=== PATIENT | female | born 1945 | race Caucasian/White ===

== ENCOUNTER 2017-10-17 10:45 | Inpatient (IN) | payer MEDICARE, OTHER ==
[~2017-10-17] VITALS: Ht 157.5 cm; Wt 91.2 kg
[~2017-10-17 10:45] MED LIST: ACETAMINOPHEN650 M5 PO; CIPROFLOXACIN250 M2 OR; COUMADIN; COUMADIN 2 MG TA2 M1 PO; COUMADIN 4 MG TA4 M1 PO; GLUCOPHAGE500 MG PO; HYDROCODON-ACE1 EAC7 PO; KEFLEX250 MG PO; MYRBETRIQ50 MG PO; NORVASC 5 MG TAB5 MG PO; PROCTOFOAM-HC 110 GM RECTAL; PROCTOFOAM15 GM RECTAL; RANEXA500 MG PO; TOPROL XL50 MG PO; WELLBUTRIN SR150 MG PO; ZOCOR 20 MG TAB20 M1 PO
[2017-10-17 11:07] VITALS: BP 94/58
[2017-10-17] MEDS ORDERED: JANTOVEN2 MG PO (11:11)
[2017-10-17 11:36] LABS: ABSOLUTE BASOPHILS 0.2 thou/uL (0.0-0.2); ABSOLUTE EOSINOPHILS 0.1 thou/uL (0.0-0.7); ABSOLUTE LYMPHOCYTES 1.7 thou/uL (0.8-5.3); ABSOLUTE MONOCYTES 0.4 thou/uL (0.0-1.2); ABSOLUTE NEUTROPHILS 4.7 thou/uL (1.6-8.1); BASOPHILS 2.2 %; EOSINOPHILS 1.7 %; HEMATOCRIT 24.9 % (37.0-47.0); LYMPHOCYTES 23.5 %; MCHC 27.1 g/dL (28.0-37.0); MCV 51.4 fL (80.0-100.0); MONOCYTES 5.6 %; MPV 9.2 fl. (7.2-11.1); NUCLEATED RBCS 1 /100WBC; RBC 4.84 mil/uL (4.20-5.00); RDW-CV 21.4 % (10.5-14.5); WBC 7.1 thou/uL (4.0-11.0)
[2017-10-17 11:42] LABS: HEMOGLOBIN 6.7 gm/dL (12.0-15.0)
[2017-10-17 11:46] LABS: ANION GAP 10 mmol/L (7-16); APTT 36.6 Seconds (25.0-31.3); BUN 17 mg/dL (7-18); CHLORIDE 104 mmol/L (98-107); CO2 24 mmol/L (21-32); CREATININE 1.4 mg/dL (0.6-1.3); GLUCOSE 128 mg/dL (70-99); INR 2.8; POTASSIUM 4.7 mmol/L (3.5-5.1); SODIUM 138 mmol/L (136-145)
[2017-10-17 11:59] LABS: PLATELET ESTIMATE DECREASED
[2017-10-17 12:00] LABS: ANISOCYTOSIS 2+; HYPOCHROMASIA 3+; MICROCYTES 2+; OVALOCYTES 2+; PLATELET COUNT* 127 thou/uL (150-400); POIKILOCYTOSIS 1+; TARGET CELLS Occasional
[2017-10-17 12:03] LABS: ALBUMIN 3.1 g/dL (3.4-5.0); ALKALINE PHOSPHATASE 80 U/L (46-116); LIPASE 199 U/L (73-393); SGOT 20 U/L (15-37); SGPT 18 U/L (30-65); TOTAL BILIRUBIN 0.8 mg/dL (<0.1-1.0); TOTAL PROTEIN 7.1 g/dL (6.4-8.2); TROPONIN-I LEVEL <0.06 ng/mL (<0.06)
--- NOTE | 2017-10-17 13:14 | NUR ---
PT GIVEN LUNCH TRAY PER ORDERS
[2017-10-17 13:15] LABS: URINE BILIRUBIN NEGATIVE (Negative); URINE BLOOD 3+ (Negative); URINE COLOR YELLOW; URINE GLUCOSE-RANDOM NEGATIVE (Negative); URINE KETONES NEGATIVE (Negative); URINE LEUKOCYTES-REFLEX 1+ (Negative); URINE NITRITE-REFLEX NEGATIVE (Negative); URINE PROTEIN TRACE (Negative); URINE UROBILINOGEN 0.2 E.U./dl (0.2-1.0)
[2017-10-17 13:16] LABS: URINE CLARITY SL CLOUDY
[2017-10-17 13:20] LABS: CASTS None Seen /LPF (None Seen); CRYSTALS None Seen /LPF (None Seen); SQUAMOUS 4-10 Moderate /LPF (0-3); URINE RBC >20 Many /HPF (0-2)
[2017-10-17 13:21] LABS: BACTERIA-REFLEX None Seen /HPF (None Seen); URINE WBC-REFLEX 0-5 Rare /HPF (0-5)
[2017-10-17 13:35] LABS: HEMATOCRIT 21.8 % (37.0-47.0)
[2017-10-17 13:36] LABS: HEMOGLOBIN 5.9 gm/dL (12.0-15.0)
--- NOTE | 2017-10-17 14:26 | NUR ---
SEE BLOOD TRANSFUSION PAPERWORK FOR UPDATED VITAL SIGNS
--- NOTE | 2017-10-17 16:24 | EKG ---
[place] [address] ELECTROCARDIOGRAM REPORT Name: VITO AYOUB Room: [place] [address] ADM IN [facility].#: [id number] Admission: 10/17/17 Attend Phys: Juan Daniel Casas MD Discharge: Date of : 47 Report #: [id number] THIS REPORT FOR: //name// [facility] ED Test Date: 2017-10-17 Test Time: 11:18:41 Pat Name: VITO AYOUB Department: Room: [facility] Gender: F Health Sciences Program Coordinator: Stanley WILKS : 1945 Requested By: Basia Edwards Order Number: [id number] MD: Franco Felder Measurements Intervals [place] Rate: 129 P: [place]: QRS: 19 QRSD: 94 T: 57 QT: 330 QTc: 484 Interpretive Statements Atrial fibrillation Probable LVH with secondary repol abnrm Compared to ECG 08/09/2017 15:58:02 Sinus rhythm no longer present Electronically Signed On 10-17-2017 16:24:07 SINTER PRESS OPERATOR by Franco Felder [email or web address] <ELECTRONICALLY SIGNED> By: Franco Felder MD, FAC 10/17/17 1624 1118 1118 Franco Felder MD, [facility] /EPI
[2017-10-17 16:33] VITALS: BP 119/84
--- NOTE | 2017-10-17 18:29 | NUR ---
PT WAS GIVEN CLEAR LIQUID TRAY FOR DINNER.
[2017-10-17 20:32] LABS: HEMATOCRIT 27.2 % (37.0-47.0)
[2017-10-17 20:34] LABS: HEMOGLOBIN 8.1 gm/dL (12.0-15.0)
[2017-10-17 20:38] VITALS: BP 122/60
[2017-10-17 21:00] VITALS: BP 134/59
[2017-10-18] VITALS: BP 92/51
[2017-10-18 04:00] VITALS: BP 109/54
[2017-10-18 05:53] LABS: HEMOGLOBIN 7.1 gm/dL (12.0-15.0); NUCLEATED RBCS 1 /100WBC; WBC 6.5 thou/uL (4.0-11.0)
[2017-10-18 05:55] LABS: HEMATOCRIT 24.5 % (37.0-47.0); MCH 16.8 pg (26.0-34.0); MCHC 29.2 g/dL (28.0-37.0); MPV 9.4 fl. (7.2-11.1); PLATELET COUNT* 99 thou/uL (150-400); RBC 4.25 mil/uL (4.20-5.00); RDW-CV 33.3 % (10.5-14.5)
[2017-10-18 06:04] LABS: MCV 57.6 fL (80.0-100.0)
[2017-10-18 06:07] LABS: CALCIUM 7.8 mg/dL (8.5-10.1); CREATININE 1.1 mg/dL (0.6-1.3); POTASSIUM 4.1 mmol/L (3.5-5.1)
[2017-10-18 06:23] LABS: ABSOLUTE BASOPHILS 0.1 thou/uL (0.0-0.2); ABSOLUTE EOSINOPHILS 0.2 thou/uL (0.0-0.7); ABSOLUTE LYMPHOCYTES 1.3 thou/uL (0.8-5.3); ABSOLUTE MONOCYTES 0.3 thou/uL (0.0-1.2); ABSOLUTE NEUTROPHILS 4.7 thou/uL (1.6-8.1); HYPOCHROMASIA 2+; MICROCYTES 2+; PLATELET ESTIMATE DECREASED
[2017-10-18 06:24] LABS: ANISOCYTOSIS 2+; OVALOCYTES 1+; POIKILOCYTOSIS 2+; POLYCHROMASIA 1+; TARGET CELLS 1+
--- NOTE | 2017-10-18 07:43 | NUR ---
PT TO FLOOR AT 2100, ASSUMED CARE. PT WAS AFIB RVR PROVIDER CONTACTED CARTIZEM DRIP ORDERED. PT RATE LOWERED BELOW 110. FLUIDS RUNING. RA. ADLIB. BM WITH BLOOD IN STOOL. VITALS WNL. HOURLY ROUNDING FOR SAFETY.
[2017-10-18 08:00] VITALS: BP 113/60
--- NOTE | 2017-10-18 11:02 | NUR ---
ASSUMED CARE OF PT AT 0730. PT RESTING IN BED. PT A&0X4. NPO FOR CARDIOLOGY CONSULT. GI CONSULT IN PLACE ALSO. PT DENIES ANY PAIN OR SHORTNESS OF BREATH AT THIS TIME. PT TRACING AFIB ON THE FELT CEMENTER. RATE IN THE 100'S-110'S. CARDIZEM GTT CURRENTLY INFUSING AT 5 ML/HR. BLOOD PRESSURE SOFT THROUGHOUT NIGHT ON CARDIZEM GTT. WILL MONITOR CLOSELY. PT ON RA SAT 97%. PT UP WITH 1 ASSIST TO BATHROOM. PT HAVING BLOODY STOOLS. IVF. PT GOAL FOR TODAY IS TO MONITOR HGB, CARDIOLOGY AND GI CONSULT AND MONITOR HEART RATE AND RHYTHM PT ON CARDIZEM GTT. AM ASSESSMENT CHARTED. MEDICATIONS PER DEC. PT REPOSITIONS SELF IN BED WITH REMINDERS. HOURLY ROUNDING OBSERVED. BED IN LOW POSITION. CALL LIGHT WITHIN REACH. WILL CONTINUE PLAN OF CARE.
[2017-10-18 11:58] VITALS: BP 114/66
[2017-10-18 11:59] LABS: HEMATOCRIT 26.1 % (37.0-47.0); HEMOGLOBIN 7.4 gm/dL (12.0-15.0)
[2017-10-18 12:09] LABS: INR 1.6; PROTIME 15.2 Seconds (9.20-11.50)
--- NOTE | 2017-10-18 15:50 | NUR ---
Pt was on the phone and asked that CM come back later, will f/u tomorrow
[2017-10-18 16:10] VITALS: BP 107/68
--- NOTE | 2017-10-18 17:03 | 2DMMODE ---
[place] [address] 2 D/M-MODE ECHOCARDIOGRAM Name: VITO AYOUB [facility] IN [facility]#: [id number] Admission: 10/17/17 Attend Phys: Juan Daniel Casas, Discharge: Date of : 47 Date of Service: 10/18/17 1703 Report #: [id number] THIS REPORT FOR: //name// APPROVED REPORT Study performed: 10/18/2017 15:00:13 EXAM: Comprehensive 2D, Doppler, and color-flow Echocardiogram Patient Location: In-Patient Room #: 208 Status: routine BSA: 1.87 HR: 93 bpm BP: 114/66 mmHg Rhythm: Atrial Fibrillation Other Information Study Quality: Good Indications Atrial Fibrillation Rectal bleeding 2D Dimensions LVEF(%): 52.91 (>50%) IVSd: 10.58 (7-11mm) LVOT Diam: 19.74 (18-24mm) LVDd: 46.13 mm PWd: 11.04 (7-11mm) Ascending Ao: 27.00 (22-36mm) LVDs: 33.61 (25-40mm) Aortic Root: 29.76 mm Zazueta's LVEF: 52.91 % Volumes Left Atrial Volume (Systole) LA ESV Index: 44.40 mL/m2 Aortic Valve AoV Peak Phil.: 1.98 m/s AO Peak Gr.: 15.76 mmHg LVOT Max P.31 mmHg AO Mean Gr.: 9.28 mmHg LVOT Mean P.88 mmHg LVOT Max V: 1.15 m/s AO V2 VTI: 32.51 cm LVOT Mean V: 0.79 m/s AMY (VTI): 1.88 cm2 LVOT V1 VTI: 19.95 cm AI [place]: 2.64 m/s2 AI PHT: 469.11 [place] [address] 2 D/M-MODE ECHOCARDIOGRAM Name: VITO AYOUB Room: [address] IN .R.#: [id number] Admission: 10/17/17 Attend Phys: Juan Daniel Casas, Discharge: Date of : 47 Date of Service: 10/18/17 1703 Report #: [id number] Mitral Valve MV Decel. Time: 174.30 ms MV PHT: 50.55 ms MVA (PHT): 4.35 cm2 TDI Medial E' Phil.: 0.12 m/s Lateral E' Phil.: 0.15 m/s Pulmonary Valve PV Peak Phil.: 1.18 m/s PV Peak Gr.: 5.54 mmHg Tricuspid Valve TR Peak Gr.: 30.52 mmHg RVSP: 35.00 mmHg Left Ventricle The left ventricle is normal size. There is normal LV segmental wall motion. There is normal left ventricular wall thickness. Left ventricular systolic function is normal. LVEF is 55-60%. This study is not technically sufficient to allow evaluation of the LV diastolic function due to atrial fibrillation. Right Ventricle The right ventricle is normal size. The right ventricular systolic function is normal. Atria Left atrium is moderately dilated. The right atrium size is normal. Aortic Valve Mild aortic valve sclerosis. Moderate aortic regurgitation. Mild aortic stenosis. Mitral Valve The mitral valve is normal in structure. Mild mitral regurgitation. No evidence of mitral valve stenosis. Tricuspid Valve The tricuspid valve is normal in structure. Mild tricuspid regurgitation. The RVSP is 35-40 mmHg. Pulmonic Valve The pulmonary valve is normal in structure. There is no pulmonic [place] [address] 2 D/M-MODE ECHOCARDIOGRAM Name: VITO AYOUB Room: [address] IN [facility]#: [id number] Admission: 10/17/17 Attend Phys: Juan Daniel Casas, Discharge: Date of : 47 Date of Service: 10/18/17 1703 Report #: [id number] Great Vessels The aortic root is normal in size. IVC is normal in size and collapses with >50% inspiration Pericardium There is no pericardial effusion. <Conclusion> The left ventricle is normal size. There is normal left ventricular wall thickness. Left ventricular systolic function is normal. LVEF is 55-60%. This study is not technically sufficient to allow evaluation of the LV diastolic function due to atrial fibrillation. Left atrium is moderately dilated. Mild aortic valve sclerosis. Mild aortic stenosis. Moderate aortic regurgitation. Mild mitral regurgitation. Mild tricuspid regurgitation. The RVSP is 35-40 mmHg. <ELECTRONICALLY SIGNED> By: Khanh Camarena MD, FACC 10/18/171702 02 02 Khanh Camarena MD, FACC /INF
--- NOTE | 2017-10-18 17:55 | NUR ---
NO ACUTE CHANGES THROUGHOUT SHIFT. REFER TO CHARTING. CARDIOLOGY HERE TO SEE PT. ORDERS RECEIVED FOR AMIODARONE LOAD PO, START CARDIZEM PO AND ECHO. ECHO RESULTS BACK AT 55-60%. CARDIZEM PO STARTED AT APPROXIMATELY 1415 AND IV CARDIZEM GTT STOPPED AT APPROXIMATELY 1530. PT CONTINUES TO TRACE AFIB RATE IN THE 90'S-110'S. BLOOD PRESSURE STABLE. GO HERE TO SEE PT. GI AGREES WITH GENERAL SURGERY PLAN AND SIGNED OFF. GENERAL SURGERY AWAITING CARDIOLOGY INPUT ON HOW LONG PT SHOULD BE OFF OF COUMADIN. ON RA SAT UPPER 90'S. DENIES ANY PAIN OR SHORTNESS OF BREATH. PT UP WITH 1 ASSIST TO BATHROOM. PT HAD COUPLE OF BLOODY STOOLS TODAY. HGB TRENDED UP THROUGHOUT DAY. IVF. MEDICATIONS PER DEC. PT REPOSITIONS SELF IN BED WITH REMINDERS. HOURLY ROUNDING OBSERVED. BED IN LOW POSITION. BED ALARM IN PLACE. FALL PRECAUTIONS IN PLACE. CALL LIGHT WITHIN REACH. WILL CONTINUE PLAN OF CARE.
[2017-10-18 20:10] VITALS: BP 106/65
--- NOTE | 2017-10-18 20:21 | CON ---
[address] [address] CONSULTATION Name: VITO AYOUB Room: [address] IN ..#: [id number] Admission: 10/17/17 Attend Phys: Juan Daniel Casas MD Discharge: Date of : 47 Report #: [id number] THIS REPORT FOR: //name// CC: Juan Daniel Redd MD DICTATED BY: Jennifer Smith [facility] DATE OF SERVICE: 10/17/2017 Please note at the time of this dictation, the patient was seen and physically examined by myself. REASON FOR CONSULTATION: Rectal bleeding. HISTORY OF PRESENT ILLNESS: This is a pleasant 71-year-old female who arrived to the emergency room after she states that she has been having increasing bright red blood per rectum with some dark and clots more so here over the last couple of days. In further investigating with the patient, she states she has been noticing blood ever since before [place], but it was off and on and now it has become more consistent and she had not let anybody know in regards to this. The patient states she has not been constipated and has not been straining to go to the bathroom. However, she has noted very minimal lower abdominal cramping at this time. She was seen on 08/08/2017, for similar reason and she underwent a by Dr. Hughes and was noted to have some mild gastritis. She had a duodenal biopsy that showed duodenitis. Colonoscopy showed severe diverticulosis of the sigmoid colon. She had 2 polyps that were removed in the ascending that were tubular adenoma. She also had 2 more polyps in the distal ascending that were not removed and it was recommended that she return in 6 months to have those done. It was also noted that she had a very large internal and external hemorrhoids that they felt were likely the source of her bleeding and she was given Proctofoam, which she states that she ran out this past week and had not gotten a new prescription, but she states she was still having bleeding while she was on the Proctofoam. She thinks it may have worsened since she ran out of the medicine she is not for sure. The patient also noticed over the last day or two prior to her calling to her PCP that she was having increased shortness of breath and she was having a little bit of chest pain as well as feeling very fatigued. ALLERGIES: MACROBID, ERYTHROMYCIN, and IMDUR. MEDICATIONS FROM HOME: Ranexa, Wellbutrin, Toprol, Glucophage, Norvasc, mirabegron and warfarin 3 mg daily, which she did not take today. PAST MEDICAL HISTORY: GI bleed, rectal bleeding from August 08, history of [facility] [address] [place] [address] CONSULTATION Name: VITO AYOUB Room: [address] IN [facility].#: [id number] Admission: 10/17/17 Attend Phys: Juan Daniel Casas MD Discharge: Date of : 47 Report #: [id number] diabetes, hypertension, congestive heart failure, atrial fib, history of a stroke. She has been told she has had "thick blood." PAST SURGICAL HISTORY: She has had a CABG, appendectomy, cholecystectomy, tubal ligation, tonsillectomy and some hand surgery done in the past. FAMILY HISTORY: Noncontributory. SOCIAL HISTORY: Alcohol on special occasions. Denies any tobacco or illegal drug use at this time. REVIEW OF SYSTEMS: Twelve-point review of systems is essentially negative except what is mentioned in the HPI. PHYSICAL EXAMINATION: VITAL SIGNS: Temperature 36.9, pulse 108, respirations 16, and blood pressure 107/47. HEART: Regular rate and rhythm, somewhat tachycardic. LUNGS: Clear, but slightly diminished. ABDOMEN: Soft, positive bowel sounds in all 4 quadrants with a little tenderness noted in the very lower abdominal region. CT of the abdomen and pelvis showed some slight liver nodularity, renal stone and some colonic diverticulosis. LABS: Hemoglobin on admission was 6.7, she dropped down to 5.9 and she is getting transfused a unit. White count is 7.1, hematocrit 21.8, platelets is 127. PT is 27, INR is 2.8. Sodium 138, potassium 4.7, chloride 104, CO2 of 24, BUN is 17, creatinine 1.4, GFR is 37, and glucose is 128. IMPRESSION: 1. Acute anemia. 2. Rectal bleeding. 3. Anticoagulant therapy secondary to atrial fibrillation, warfarin and previous cerebrovascular accident. 4. Thrombocytopenia. PLAN: 1. Transfuse as needed to keep her hemoglobin greater than 7. 2. Hold her warfarin. 3. We discussed with the patient that may need to have something done with her hemorrhoids in the future, but for now, we will attempt to control her bleeding and get [place] [address] CONSULTATION Name: VITO AYOUB Room: 208-P ADM IN M.R.#: [id number] Admission: 10/17/17 Attend Phys: Juan Daniel Casas MD Discharge: Date of : 47 Report #: [id number] Thank you for allowing us to participate in this patient's care. Please do not hesitate to call with any questions in regard to this consult. <ELECTRONICALLY SIGNED> By: Vicente Vázquez DO 10/18/172020 1734 2232Vicente Vázquez DO /nt
[2017-10-19] VITALS (7 sets, daily range): BP systolic 102–132; BP diastolic 47–71
--- NOTE | 2017-10-19 03:41 | NUR ---
ASSUMED CARE OF PT AT 1900. PT IS ALERT AND ORINETED. VSS. PERRLA. NO COMPLAINTS OF PAIN. UP WITH STAND BY ASSIST. PT IS IN A FIB ON THE TELEMETRY. PT IS RESTING COMFORTABLY IN BED. RESPIRATIONS ARE EVEN AND NONLABORED. WILL CONTINUE TO MONITOR PT.
--- NOTE | 2017-10-19 09:30 | NUR ---
ASSUMED CARE OF PT AT 0730. PT RESTING AT EDGE OF BED WAITING FOR BREAKFAST. PT A&0X4, DENIES ANY PAIN OR SHORTNESS OF BREATH AT THIS TIME. PT TRACING AFIB ON THE SHIPPING SPECIALIST. RATE IN THE LOW 100'S. AMIO LOAD IN PLACE. PT ON RA SAT UPPER 90'S. PT UP WITH 1 ASSIST TO BATHROOM. PT STATES THE BLOODY STOOLS HAVE GOTTEN BETTER. GENERAL SURGERY AWAITING CARDIOLOGY CLEARANCE FOR SURGERY REGARDING TIME OFF COUMADIN. AM ASSESSMENT CHARTED. MEDICATIONS PER DEC. PT REPOSITIONS SELF IN BED WITH REMINDERS. HOURLY ROUNDING OBSERVED. BED IN LOW POSITION. CALL LIGHT WITHIN REACH. WILL CONTINUE PLAN OF CARE.
[2017-10-19 10:10] LABS: ABSOLUTE BASOPHILS 0.2 thou/uL (0.0-0.2); ABSOLUTE EOSINOPHILS 0.1 thou/uL (0.0-0.7); ABSOLUTE LYMPHOCYTES 1.3 thou/uL (0.8-5.3); ABSOLUTE MONOCYTES 0.4 thou/uL (0.0-1.2); ABSOLUTE NEUTROPHILS 4.2 thou/uL (1.6-8.1); BASOPHILS 2.6 %; EOSINOPHILS 1.6 %; HEMATOCRIT 24.8 % (37.0-47.0); LYMPHOCYTES 20.9 %; MCH 16.4 pg (26.0-34.0); MCHC 28.3 g/dL (28.0-37.0); MPV 8.9 fl. (7.2-11.1); NUCLEATED RBCS 0 /100WBC; POLYS 67.9 %; RBC 4.27 mil/uL (4.20-5.00); RDW-CV 33.6 % (10.5-14.5); WBC 6.2 thou/uL (4.0-11.0)
[2017-10-19 10:41] LABS: MICROCYTES 2+; OVALOCYTES 2+
[2017-10-19 10:42] LABS: HYPOCHROMASIA 2+; POLYCHROMASIA 2+; TARGET CELLS 1+
[2017-10-19 10:43] LABS: PLATELET COUNT* 83 thou/uL (150-400); PLATELET ESTIMATE DECREASED
[2017-10-19 10:45] LABS: ALBUMIN 2.6 g/dL (3.4-5.0); CALCIUM 8.3 mg/dL (8.5-10.1); CREATININE 1.2 mg/dL (0.6-1.3); TOTAL BILIRUBIN 1.1 mg/dL (<0.1-1.0); TOTAL PROTEIN 5.9 g/dL (6.4-8.2)
--- NOTE | 2017-10-19 12:51 | EKG ---
[place] [address] ELECTROCARDIOGRAM REPORT Name: VITO AYOUB Room: [address] ADM IN .R.#: [id number] Admission: 10/17/17 Attend Phys: Juan Daniel Casas MD Discharge: Date of : 47 Report #: [id number] THIS REPORT FOR: //name// [facility] Test Date: 2017-10-19 Test Time: 09:33:55 Pat Name: VITO AYOUB Department: Room: [address] Gender: F Construction Driver: : 1945 Requested By: Deisi Case Order Number: [id number] Reading MD: Franco Felder Measurements Intervals [place] Rate: 93 P: [place]: QRS: 39 QRSD: 98 T: 77 QT: 365 QTc: 454 Interpretive Statements Atrial fibrillation Minimal ST depression, lateral leads Compared to ECG 10/17/2017 11:18:41 rate slowed Electronically Signed On 10-19-2017 12:51:33 HVAC/R INSTRUCTOR by Franco Felder [email or web address] <ELECTRONICALLY SIGNED> By: Franco Felder MD, [facility] 10/19/17 1251 2 2 Franco Felder MD, [facility] /EPI
--- NOTE | 2017-10-19 14:46 | NUR ---
CM ASSESSMENT: Pt is A&O. Resides at home with her . Independent with ADLs. Pt has a walker and cane at home that she can use if necessary. No hx of HH or SNF. Goal is to return home once medically stable. Following.
--- NOTE | 2017-10-19 18:27 | NUR ---
NO ACUTE CHANGES THROUGHOUT SHIFT. REFER TO CHARTING. PT HAD SHOWER TODAY. IVF DISCONTINUED. PLAN IS FOR PT AND GENERAL SURGERY TO AGREE ON WHAT HEMORRHOIDAL SURGERY WILL OCCUR. PT CONTINUES TO TRACE AFIB ON THE MULTI SLIDE MACHINE TENDER. RATE CONTROLLED. ON RA SAT UPPER 90'S. DENIES ANY SHORTNESS OF BREATH OR PAIN. FAMILY AT BEDSIDE THROUGHOUT SHIFT. PT DENIES ANY BLOODY STOOLS TODAY. UP WITH 1 ASSIST TO BATHROOM. MEDICATIONS PER MAR. PT REPOSITIONS SELF IN BED WITH REMINDERS. HOURLY ROUNDING OBSERVED. BED IN LOW POSITION. CALL LIGHT WITHIN REACH. WILL CONTINUE PLAN OF CARE.
--- NOTE | 2017-10-19 23:50 | NUR ---
ASSUMED CARE OF PT AT 1900. PT IS ALERT AND ORIENTED. VSS. PERRLA. NO COMPLAINTS OF PAIN. UP AD JOS. PT IS IN A FIB ON THE TELEMETRY. PT IS RESTING COMFORTABLY IN BED. RESPIRATIONS ARE EVEN AND NONLABORED. WILL CONTINUE TO MONITOR PT.
[2017-10-20] VITALS: BP 92/48
[2017-10-20 04:12] VITALS: BP 93/50
[2017-10-20 06:02] LABS: PREALBUMIN 16.5 mg/dL (18.0-35.7)
[2017-10-20 06:17] LABS: CALCIUM 8.9 mg/dL (8.5-10.1); CREATININE 1.4 mg/dL (0.6-1.3); POTASSIUM 4.1 mmol/L (3.5-5.1)
[2017-10-20 06:43] LABS: ABSOLUTE BASOPHILS 0.1 thou/uL (0.0-0.2); ABSOLUTE EOSINOPHILS 0.2 thou/uL (0.0-0.7); ABSOLUTE LYMPHOCYTES 1.4 thou/uL (0.8-5.3); ABSOLUTE MONOCYTES 0.6 thou/uL (0.0-1.2); ABSOLUTE NEUTROPHILS 6.2 thou/uL (1.6-8.1); BASOPHILS 0.9 %; EOSINOPHILS 2.3 %; HEMATOCRIT 24.4 % (37.0-47.0); HEMOGLOBIN 7.2 gm/dL (12.0-15.0); MCH 16.9 pg (26.0-34.0); MCHC 29.3 g/dL (28.0-37.0); MCV 57.4 fL (80.0-100.0); MONOCYTES 6.6 %; MPV 9.7 fl. (7.2-11.1); NUCLEATED RBCS 1 /100WBC; PLATELET COUNT* 82 thou/uL (150-400); POLYS 73.2 %; RBC 4.25 mil/uL (4.20-5.00); WBC 8.4 thou/uL (4.0-11.0)
[2017-10-20 07:05] LABS: HYPOCHROMASIA 3+; MICROCYTES 2+; OVALOCYTES 2+; PLATELET ESTIMATE DECREASED; TARGET CELLS 1+
[2017-10-20 07:06] LABS: ANISOCYTOSIS 2+; POIKILOCYTOSIS 2+
[2017-10-20 08:30] VITALS: BP 109/55
[2017-10-20 12:33] VITALS: BP 115/47
--- NOTE | 2017-10-20 13:47 | EKG ---
[place] [address] ELECTROCARDIOGRAM REPORT Name: VITO AYOUB Room: [address] ADM IN M.R.#: [id number] Admission: 10/17/17 Attend Phys: Juan Daniel Casas MD Discharge: Date of : 47 Report #: [id number] THIS REPORT FOR: //name// [facility] Test Date: 2017-10-20 Test Time: 09:28:37 Pat Name: VITO AYOUB Department: Room: [address] Gender: F Swimming Pool Servicer: TAMI : 1945 Requested By: Deisi Case Order Number: [id number] Reading MD: Ovidio Lorenz Measurements Intervals [place] Rate: 83 P: 21 CT: 152 QRS: 33 QRSD: 106 T: 71 QT: 427 QTc: 502 Interpretive Statements Sinus rhythm Minimal ST depression, lateral leads Prolonged QT interval Compared to ECG 10/19/2017 09:33:55 Prolonged QT interval now present Atrial fibrillation no longer present ST (T wave) deviation still present Electronically Signed On 10-20-2017 13:47:03 WATER PROJECT MANAGER by Ovidio Lorenz [email or web address] <ELECTRONICALLY SIGNED> By: Mallorie Lorenz MD, [facility] 10/20/17 1347 0928 Mallorie Lorenz MD, [facility] /EPI
[2017-10-20 16:00] VITALS: BP 86/35
--- NOTE | 2017-10-20 19:25 | NUR ---
PT ASSESSMENT CHARTED. PT CONTINUES TO HAVE INCREASING SOA AND IS VERY ORTHOPNEIC. CHEST XRAY RECEIVED AND ANTIBIOTICS STARTED. STAT CBC ORDERS RECEIVED TO CHECK FOR DROP IN HGB. NO COMPLAINTS OF PAIN. PT'S VITAL SIGNS HAVE BEEN STABLE.
[2017-10-20 19:33] LABS: HEMATOCRIT 25.4 % (37.0-47.0); HEMOGLOBIN 7.3 gm/dL (12.0-15.0); MCH 16.7 pg (26.0-34.0); MCHC 28.8 g/dL (28.0-37.0); MCV 57.7 fL (80.0-100.0); MPV 8.9 fl. (7.2-11.1); RBC 4.4 mil/uL (4.20-5.00); RDW-CV 34.4 % (10.5-14.5); WBC 8.9 thou/uL (4.0-11.0)
[2017-10-20 19:40] VITALS: BP 117/61
[2017-10-21] VITALS: BP 113/59
--- NOTE | 2017-10-21 03:29 | NUR ---
ASSUMED CARE OF PT AT 1900. PT IS ALERT AND ORIENTED. VSS. PERRLA. NO COMPLAINTS OF PAIN. PT REPORTS SOME SOA. SPO2 96%. PT IS IN SINUS RYTHM ON THE TELEMETRY. PT IS RESTING COMFORTABLY IN BED. RESPIRATIONS ARE EVEN AND NONLABORED. WILL CONTINUE TO MONITOR PT.
[2017-10-21 04:00] VITALS: BP 121/71
[2017-10-21 06:03] LABS: INR 1.2; PROTIME 11.3 Seconds (9.20-11.50)
[2017-10-21 06:05] LABS: CALCIUM 8.9 mg/dL (8.5-10.1); CREATININE 1.2 mg/dL (0.6-1.3); POTASSIUM 4.2 mmol/L (3.5-5.1)
[2017-10-21 06:46] LABS: HEMATOCRIT 24.9 % (37.0-47.0); HEMOGLOBIN 7.2 gm/dL (12.0-15.0); MCH 16.6 pg (26.0-34.0); MCHC 28.8 g/dL (28.0-37.0); MCV 57.7 fL (80.0-100.0); MPV 9.5 fl. (7.2-11.1); RBC 4.31 mil/uL (4.20-5.00); RDW-CV 32.8 % (10.5-14.5); WBC 8.5 thou/uL (4.0-11.0)
[2017-10-21 10:24] VITALS: BP 102/55
--- NOTE | 2017-10-21 11:52 | NUR ---
PATIENT IV CAME OUT, THIS AM BEFORE 730, PATIENT WAS ALERT AND COOPERATIVE, PRESSURE HELD. WHEN I RETURNED TO ROOM AT 1024 PATIENT WAS LETHARGIC, DIFFICULTY AROUSING. VITALS STABLE, SUGAR 194. PATIENT STATES SHE WAS DIZZY AND JUST TIRED. GOT PATIENT INTO RECLINER INSTEAD OF REGULAR CHAIR. MORE COMFORTABLE, MORE RESPONSIVE AT THIS TIME. TOOK PILLS FINE. NEW IV STARTED AND FLUIDS RESUMED.
--- NOTE | 2017-10-21 16:00 | EKG ---
[place] [address] ELECTROCARDIOGRAM REPORT Name: VITO YAOUB Room: [address] ADM IN M.R.#: [id number] Admission: 10/17/17 Attend Phys: Juan Daniel Casas MD Discharge: Date of : 47 Report #: [id number] THIS REPORT FOR: //name// [facility] Test Date: 2017-10-21 Test Time: 07:55:09 Pat Name: VITO AYOUB Department: Room: [address] Gender: F Documentation Spec: TAMI : 1945 Requested By: Mallorie Lorenz Order Number: [id number] Reading MD: Ovidio Lorenz Measurements Intervals [place] Rate: 82 P: 7 VT: 162 QRS: 17 QRSD: 103 T: 124 QT: 411 QTc: 480 Interpretive Statements Sinus rhythm Borderline repolarization abnormality Compared to ECG 10/20/2017 09:28:37 ST (T wave) deviation no longer present Prolonged QT interval no longer present Electronically Signed On 10-21-2017 16:00:31 MANAGER GALLERY by Ovidio Lorenz [email or web address] <ELECTRONICALLY SIGNED> By: Mallorie Lorenz MD, [facility] 10/21/17 1600 0755 0755 Mallorie Lorenz MD, [facility] /EPI
[2017-10-21 16:04] VITALS: BP 118/70
--- NOTE | 2017-10-21 18:08 | NUR ---
PATIENT HAS NO COMPLAINTS AT THIS TIME, SITTING UP IN CHAIR AT THIS TIME, NOT WANTING TO SLEEP IN BED, ONLY IN RECLINER. NO PAIN, NAUSEA OR SHORTNESS OF AIR. CALL LIGHT IN REACH, WILL CONTINUE TO MONTIOR.
[2017-10-21 20:00] VITALS: BP 120/65
[2017-10-22] VITALS (7 sets, daily range): BP systolic 114–138; BP diastolic 59–76
--- NOTE | 2017-10-22 02:48 | NUR ---
ASSUMED CARE OF PT AT 1900. PT IS ALERT AND ORIENTED. VSS. PERRLA. NO COMPLAINTS OF PAIN. UP WITH 1 ASSIST. PT IS ON SINUS RYTHM ON THE TELEMETRY. PT IS RESTING COMFORTABLY IN BED. RESPIRATIONS ARE EVEN AND NONLABORED. WILL CONTINUE TO MONITOR PT.
[2017-10-22 05:24] LABS: HEMATOCRIT 23.8 % (37.0-47.0); MCH 16.4 pg (26.0-34.0); MCHC 28.6 g/dL (28.0-37.0); MCV 57.4 fL (80.0-100.0); MPV 9.7 fl. (7.2-11.1); RBC 4.14 mil/uL (4.20-5.00); RDW-CV 33.3 % (10.5-14.5)
[2017-10-22 05:32] LABS: HEMOGLOBIN 6.8 gm/dL (12.0-15.0)
[2017-10-22 05:42] LABS: CALCIUM 8.5 mg/dL (8.5-10.1); CREATININE 1.2 mg/dL (0.6-1.3); MAGNESIUM 1.6 mg/dL (1.8-2.4); POTASSIUM 3.7 mmol/L (3.5-5.1)
[2017-10-22 06:27] LABS: ABSOLUTE BASOPHILS 0.1 thou/uL (0.0-0.2); ABSOLUTE EOSINOPHILS 0.2 thou/uL (0.0-0.7); ABSOLUTE LYMPHOCYTES 0.9 thou/uL (0.8-5.3); ABSOLUTE MONOCYTES 0.5 thou/uL (0.0-1.2); ABSOLUTE NEUTROPHILS 4.2 thou/uL (1.6-8.1); BASOPHILS 1.2 %; EOSINOPHILS 3.6 %; HEMATOCRIT 24.2 % (37.0-47.0); LYMPHOCYTES 15.1 %; MCH 16.3 pg (26.0-34.0); MCHC 28.5 g/dL (28.0-37.0); MCV 57.1 fL (80.0-100.0); MONOCYTES 7.9 %; NUCLEATED RBCS 0 /100WBC; PLATELET COUNT* 81 thou/uL (150-400); POLYS 72.2 %; RBC 4.25 mil/uL (4.20-5.00); RDW-CV 32.8 % (10.5-14.5); WBC 5.9 thou/uL (4.0-11.0)
[2017-10-22 06:31] LABS: HEMOGLOBIN 6.9 gm/dL (12.0-15.0)
[2017-10-22 07:08] LABS: TARGET CELLS 2+
[2017-10-22 07:09] LABS: ANISOCYTOSIS 3+; HYPOCHROMASIA 2+; MICROCYTES 2+; OVALOCYTES 1+; POLYCHROMASIA 2+
--- NOTE | 2017-10-22 14:15 | NUR ---
ASSUMED RESPONSBILITY OF PT THIS AM PT IS ALERT AND ORIENTED BUT FORGETFUL AT TIMES V/S WNL NSR TRACKING ON THE MONITOR 1+ EDEMA TO BLE LS DIMINISHED IN BASES 1U OF BLOOD GIVEN OF NOW SURGERY IS PLANNED FOR TOMORROW CONSENTS SIGNED DENIES ANY PAIN OR DISCOMFORT UP SBA WITH A WALKER TO THE BATHROOM SM BM WITHOUT BLOOD NOTED GOOD APPETITE DTR HERE AND PT PUT HER ON CONTACT LIST WELL BOTH OF HER SONS NO WAY TO CHANGED IN THE COMPUTER THOUGH ADMIT WAS TAKEN OUT OF PROCESS INTERVENTIONS WILL PASS ON IN REPORT CALL LIGHT IN REACH BED ALARM ON
--- NOTE | 2017-10-22 16:04 | NUR ---
Pt admits to feeling weak, but ok. Scheduled to have surgery tomorrow. Pt's family in room visiting.
--- NOTE | 2017-10-22 16:22 | NUR ---
GIFTY ARRIAGA DAUGHTER [phone] ANA HOFFMANCY [phone] BESSY HOFFMANCY [phone] ADMIT INTERVENTION IS GONE TO TRY AND UPDATE
[2017-10-22 17:25] LABS: HEMATOCRIT 26.2 % (37.0-47.0); HEMOGLOBIN 7.9 gm/dL (12.0-15.0)
--- NOTE | 2017-10-22 18:36 | NUR ---
1U OF BLOOD GIVEN TODAY NEW IV STARTED IN [facility] SURGERY IS SCHEDULED FOR 1529 TOMORROW NPO AFTER MIDNIGHT PT RESTED T/O DAY BM THIS AM BUT SMALL AND WITHOUT BLOOD DENIES SOA OR PAIN PLEASANT AND COOPERATIVE BED ALARM ON
[2017-10-23 03:46] VITALS: BP 155/88
--- NOTE | 2017-10-23 04:59 | NUR ---
PT CARE ASSUMED AFTER REPORT. ASSESSMENT COMPLETE. SR ON MONITOR. PRN PAIN MEDICATION GIVEN WITH RELIEF OF PAIN. NPO SINCE MIDNIGHT FOR PROCEDURE TODAY. FALL PRECAUTIONS IN PLACE INCLUDING BED ALARM. NO BLEEDING REPORTED OR OBSERVED. PROGRESSING TOWARDS GOALS.
[2017-10-23 07:12] LABS: ABSOLUTE BASOPHILS 0.1 thou/uL (0.0-0.2); ABSOLUTE EOSINOPHILS 0.1 thou/uL (0.0-0.7); ABSOLUTE LYMPHOCYTES 1.3 thou/uL (0.8-5.3); ABSOLUTE MONOCYTES 0.6 thou/uL (0.0-1.2); ABSOLUTE NEUTROPHILS 5.3 thou/uL (1.6-8.1); BASOPHILS 1.1 %; HEMOGLOBIN 7.9 gm/dL (12.0-15.0); LYMPHOCYTES 17.8 %; MCH 16.9 pg (26.0-34.0); MCHC 28.4 g/dL (28.0-37.0); MCV 59.5 fL (80.0-100.0); MONOCYTES 7.6 %; MPV 8.6 fl. (7.2-11.1); NUCLEATED RBCS 0 /100WBC; POLYS 71.5 %; RBC 4.71 mil/uL (4.20-5.00); RDW-CV 36.2 % (10.5-14.5); WBC 7.5 thou/uL (4.0-11.0)
[2017-10-23 07:16] LABS: INR 1.2; PROTIME 11.7 Seconds (9.20-11.50)
[2017-10-23 07:44] LABS: HYPOCHROMASIA 3+; OVALOCYTES 1+; PLATELET COUNT* 75 thou/uL (150-400); PLATELET ESTIMATE DECREASED; POLYCHROMASIA 1+; SCHISTOCYTES Occasional
[2017-10-23 07:45] LABS: ANISOCYTOSIS 2+; MICROCYTES 2+; POIKILOCYTOSIS 2+; TARGET CELLS Occasional
[2017-10-23 08:02] VITALS: BP 148/75
[2017-10-23 08:08] LABS: CALCIUM 8.6 mg/dL (8.5-10.1); CREATININE 1.1 mg/dL (0.6-1.3); POTASSIUM 3.4 mmol/L (3.5-5.1)
--- NOTE | 2017-10-23 11:22 | NUR ---
ASSUMED RESPONSIBLITY OF PT THIS AM PT IS ALERT AND ORIENTED BUT FORGETFUL AT TIMES NPO FOR SURGERY TODAY AT 1530 HGB STAYED UP AT 7.9 THIS AM 1U OF BLOOD GIVEN YESTERDAY RAC IV CONT 20G LBM YESTERDAY NO BLOOD ACHS WILL HOLD METFORMIN FOR 48 HOURS D/T CTA CONTRAST TRACE EDEMA NOTED TO BLE INR WNL NO CONCERNS AT THIS TIME
[2017-10-23 11:30] VITALS: BP 117/63
--- NOTE | 2017-10-23 17:38 | EKG ---
[place] [address] ELECTROCARDIOGRAM REPORT Name: VITO AYOUB Room: [address] ADM IN M.R.#: [id number] Admission: 10/17/17 Attend Phys: Juan Daniel Casas MD Discharge: Date of : 47 Report #: [id number] THIS REPORT FOR: //name// [facility] Test Date: 2017-10-22 Test Time: 10:16:12 Pat Name: VITO AYOUB Department: Room: [address] Gender: F Gradall Operator: 27 : 1945 Requested By: Mallorie Lorenz Order Number: [id number] Reading MD: Khanh Camarena Measurements Intervals [place] Rate: 89 P: 19 [place]: 150 QRS: 28 QRSD: 101 T: QT: 392 QTc: 477 Interpretive Statements Sinus rhythm Borderline repolarization abnormality Compared to ECG 10/21/2017 07:55:09 No significant changes Electronically Signed On 10-23-2017 17:38:09 DESIGN ENGINEER PRODUCTS by Khanh Camarena [email or web address] <ELECTRONICALLY SIGNED> By: Khanh Camarena MD, [facility] 10/23/17 1738 1016 1016 Khanh Camarena MD, [facility] /EPI
[2017-10-23 20:00] VITALS: BP 123/69
[2017-10-24 00:15] VITALS: BP 118/63
[2017-10-24 03:56] VITALS: BP 91/49
--- NOTE | 2017-10-24 05:30 | NUR ---
PT CARE ASSUMED AFTER REPORT. ASSESSMENT COMPLETE. AFIB/AFLUTTER ON MONITOR. CARDIZEM GTT INFUSING AT 15ML/H. NPO SINCE MIDNIGHT FOR POSSOBLE PROCEDURE TODAY. UP WITH WALKER AND STAND BY ASSIST. DENIES PAIN. PROGRESSING TOWARDS SOME GOALS.
[2017-10-24 07:22] LABS: ABSOLUTE BASOPHILS 0.2 thou/uL (0.0-0.2); ABSOLUTE EOSINOPHILS 0.2 thou/uL (0.0-0.7); ABSOLUTE LYMPHOCYTES 1.5 thou/uL (0.8-5.3); ABSOLUTE MONOCYTES 0.6 thou/uL (0.0-1.2); ABSOLUTE NEUTROPHILS 6.2 thou/uL (1.6-8.1); BASOPHILS 2.7 %; EOSINOPHILS 1.9 %; HEMATOCRIT 27.1 % (37.0-47.0); LYMPHOCYTES 17.4 %; MCH 17.2 pg (26.0-34.0); MCHC 29.4 g/dL (28.0-37.0); MCV 58.4 fL (80.0-100.0); MONOCYTES 6.7 %; MPV 9.5 fl. (7.2-11.1); NUCLEATED RBCS 0 /100WBC; POLYS 71.3 %; RBC 4.63 mil/uL (4.20-5.00); RDW-CV 36.6 % (10.5-14.5); WBC 8.7 thou/uL (4.0-11.0)
[2017-10-24 07:25] LABS: CALCIUM 8.8 mg/dL (8.5-10.1); CREATININE 1.1 mg/dL (0.6-1.3); POTASSIUM 3.3 mmol/L (3.5-5.1)
[2017-10-24 07:33] LABS: INR 1.2; PROTIME 11.6 Seconds (9.20-11.50)
[2017-10-24 07:56] LABS: ANISOCYTOSIS 3+; HYPOCHROMASIA 3+; MICROCYTES 2+; PLATELET COUNT* 99 thou/uL (150-400); PLATELET ESTIMATE DECREASED
[2017-10-24 07:57] LABS: POLYCHROMASIA 2+
[2017-10-24 08:00] VITALS: BP 112/66
--- NOTE | 2017-10-24 10:36 | NUR ---
Nutrition: Pt assessed for LOS. Has been eating 75% of CHO controlled diet. Currently NPO for procedure. Alb 2.6, prealb 16.5. Wt appears to have increased since admit: 180-200#. Will follow wt trends. Low risk at this time.
[2017-10-24 12:00] VITALS: BP 115/52
--- NOTE | 2017-10-24 13:15 | NUR ---
ASSUMED RESPONSIBLITY OF PT THIS AM PT IS ALERT AND ORIENTED FORGETFUL AT TIMES SITTING IN A RECLINER NO PAIN OR DISCOMFORT CARDIZEM GTT STOPPED AND PO CARDIZEM AND SOTALOL STARTED TRACKING AFIB ON THE MONITOR STILL UP SBA WITH WALKER TO BATHROOM PLAN FOR SURGERY TOMORROW CLEARED BY CARDIOLOGY CALL LIGHT IN REACH NO CONCERNS AT THIS TIME
[2017-10-24 16:14] VITALS: BP 111/63
--- NOTE | 2017-10-24 17:38 | NUR ---
PT IS NOW NSR ON THE MONITOR ZOSYN STILL AT EVERY 6 HOURS PT HAS BEEN DOING FINE GETTING UP BY SELF WITH WALKER NO NEEDS AT THIS TIME SURGERY PLANNED FOR TOMORROW NPO AFTER MIDNIGHT
[2017-10-24 20:00] VITALS: BP 123/64
[2017-10-25] VITALS (7 sets, daily range): BP systolic 81–129; BP diastolic 43–68
[2017-10-25 05:05] LABS: ABSOLUTE BASOPHILS 0.1 thou/uL (0.0-0.2); ABSOLUTE EOSINOPHILS 0.3 thou/uL (0.0-0.7); ABSOLUTE LYMPHOCYTES 1.5 thou/uL (0.8-5.3); ABSOLUTE MONOCYTES 0.6 thou/uL (0.0-1.2); ABSOLUTE NEUTROPHILS 5.6 thou/uL (1.6-8.1); BASOPHILS 1.3 %; EOSINOPHILS 3.5 %; HEMATOCRIT 26.4 % (37.0-47.0); HEMOGLOBIN 7.8 gm/dL (12.0-15.0); LYMPHOCYTES 18.7 %; MCH 17.3 pg (26.0-34.0); MCHC 29.6 g/dL (28.0-37.0); MCV 58.5 fL (80.0-100.0); MONOCYTES 7.2 %; NUCLEATED RBCS 0 /100WBC; PLATELET COUNT* 79 thou/uL (150-400); POLYS 69.3 %; RDW-CV 36.6 % (10.5-14.5); WBC 8.1 thou/uL (4.0-11.0)
--- NOTE | 2017-10-25 05:11 | NUR ---
PT CARE ASSUMED AFTER REPORT. ASSESSMENT COMPLETE. SR ON MONITOR. UP WITH STAND BY ASSIST AND WALKER. DENIES PAIN. CALL LIGHT IN REACH. BED IN LOWEST POSITION. NPO SINCE MIDNIGHT FOR PROCEDURE TODAY. PROGRESSING TOWARDS GOALS.
[2017-10-25 05:12] LABS: ALBUMIN 2.6 g/dL (3.4-5.0); CALCIUM 8.7 mg/dL (8.5-10.1); CREATININE 1.2 mg/dL (0.6-1.3); POTASSIUM 3.4 mmol/L (3.5-5.1); TOTAL PROTEIN 6.1 g/dL (6.4-8.2)
[2017-10-25 06:52] LABS: PLATELET ESTIMATE DECREASED; POLYCHROMASIA 1+; TARGET CELLS 1+
[2017-10-25 06:53] LABS: HYPOCHROMASIA 2+; MICROCYTES 3+; OVALOCYTES 1+; POIKILOCYTOSIS 2+
[2017-10-25 06:54] LABS: ANISOCYTOSIS 2+
--- NOTE | 2017-10-25 12:00 | NUR ---
RECEIVED PT CARE 0700. PT IS ALERT AND ORIENTED X4. VSS. SPONGE HOOKER TRACING SR. PATIENT DENIES ANY SOA. O2 SAT 92% ON ROOM AIR. UP WITH STANDBY ASSIST AND A WALKER IN ROOM WITH BATHROOM PRIVILEDGES. UP TO SHOWER THIS AM WITH ASSIST OF A DRUM REEL CUTTER. AM ASSESSMENT CHARTED. MEDS PER DEC. NPO FOR SURGERY. CONSENT SIGNED AND ON FRONT OF CHART. BED ALARM ON. CALL LIGHT WITHIN REACH. WILL CONTINUE TO MONITOR.
--- NOTE | 2017-10-25 12:02 | NUR ---
THD planned today.
--- NOTE | 2017-10-25 15:48 | EKG ---
[place] [address] ELECTROCARDIOGRAM REPORT Name: VITO AYOUB Room: [address] ADM IN M.R.#: [id number] Admission: 10/17/17 Attend Phys: Juan Daniel Casas MD Discharge: Date of : 47 Report #: [id number] THIS REPORT FOR: //name// [facility] Test Date: 2017-10-25 Test Time: 08:51:02 Pat Name: VITO AYOUB Department: Room: [address] Gender: F Bolt Cutter: : 1945 Requested By: Deisi Case Order Number: [id number] Reading MD: Chas Pretty Measurements Intervals [place] Rate: 76 P: 27 ME: 151 QRS: 31 QRSD: 99 T: 55 QT: 440 QTc: 495 Interpretive Statements Sinus rhythm Probable left atrial enlargement Borderline prolonged QT interval Compared to ECG 10/22/2017 10:16:12 No significant changes Electronically Signed On 10-25-2017 15:48:03 TELEGRAPH REPEATER MECHANIC by Chas Pretty [email or web address] <ELECTRONICALLY SIGNED> By: Chas Pretty MD, [facility] 10/25/17 1548 [id number] Chas Pretty MD, FAC /EPI
--- NOTE | 2017-10-25 18:59 | NUR ---
PT PROGRESSING TOWARDS GOALS. BACK IN ROOM POST SURGERY. VSS. BACKPACKERS MANAGER TRACING SR. O2 SAT 96% ON 2L NC. REPOSITIONED FOR COMFORT. PLACED PATIENT ON BED ROCHA TO URINATE BUT SHE WAS UNABLE TO URINATE AT THAT TIME. REINFORCEMENT GIVEN. ENCOURAGED PATIENT TO DRINK LOTS OF FLUIDS AND WE WOULD TRY AGAIN. WILL MONITOR FOR RETENTION. TOLERATING HER DIET WELL WITHOUT NAUSEA OR VOMITING. HOURLY ROUNDING CHARTED. CALL LIGHT WITHIN REACH. BED ALARM ON. WILL CONTINUE TO MONITOR.
[2017-10-26] VITALS (7 sets, daily range): BP systolic 82–130; BP diastolic 40–64
[2017-10-26 05:06] LABS: CALCIUM 8.6 mg/dL (8.5-10.1); CREATININE 1.4 mg/dL (0.6-1.3); POTASSIUM 3.3 mmol/L (3.5-5.1)
[2017-10-26 05:07] LABS: ABSOLUTE BASOPHILS 0.1 thou/uL (0.0-0.2); ABSOLUTE EOSINOPHILS 0.2 thou/uL (0.0-0.7); ABSOLUTE LYMPHOCYTES 1.1 thou/uL (0.8-5.3); ABSOLUTE MONOCYTES 0.7 thou/uL (0.0-1.2); ABSOLUTE NEUTROPHILS 7.1 thou/uL (1.6-8.1); BASOPHILS 1.2 %; MCH 17.3 pg (26.0-34.0); MCHC 29.2 g/dL (28.0-37.0); MCV 59.3 fL (80.0-100.0); MONOCYTES 7.4 %; MPV 9.3 fl. (7.2-11.1); NUCLEATED RBCS 0 /100WBC; PLATELET COUNT* 86 thou/uL (150-400); POLYS 77.4 %; RBC 4.04 mil/uL (4.20-5.00); WBC 9.1 thou/uL (4.0-11.0)
[2017-10-26 06:30] LABS: HYPOCHROMASIA 3+; PLATELET ESTIMATE DECREASED; POLYCHROMASIA 1+; TARGET CELLS 1+
[2017-10-26 06:31] LABS: ANISOCYTOSIS 2+; MICROCYTES 2+; OVALOCYTES 1+; POIKILOCYTOSIS 2+; SCHISTOCYTES Occasional
--- NOTE | 2017-10-26 07:01 | NUR ---
PT IS ABLE TO COMMUNICATE HER NEEDS TO STAFF EFFECTIVELY. CURRENT PAIN MEDICATION REGIMEN HAS BEEN ADEQUATE FOR CONTROLLING HER PAIN UP TO THIS TIME. SMALL AMOUNT OF PER RECTUM BLEEDING OVERNIGHT. PT HAS MOSTLY RIGHT HIP PAIN.
--- NOTE | 2017-10-26 14:46 | EKG ---
[place] [address] ELECTROCARDIOGRAM REPORT Name: VITO AYOUB Room: [address] ADM IN .R.#: [id number] Admission: 10/17/17 Attend Phys: Juan Daniel Casas MD Discharge: Date of : 47 Report #: [id number] THIS REPORT FOR: //name// [facility] Test Date: 2017-10-26 Test Time: 08:49:59 Pat Name: VITO AYOUB Department: Room: [address] Gender: F Electric Appliance Installer: : 1945 Requested By: Deisi Case Order Number: [id number] Reading MD: Khanh Camarena Measurements Intervals [place] Rate: 84 P: 21 ND: 147 QRS: 22 QRSD: 102 T: 46 QT: 426 QTc: 504 Interpretive Statements Sinus rhythm Borderline repolarization abnormality Prolonged QT interval Baseline wander in lead(s) V1,V2,V3,V5,V6 Compared to ECG 10/25/2017 08:51:02 No significant changes Electronically Signed On 10-26-2017 14:46:17 ADMINISTRATIVE OFFICE ASSISTANT by Khanh Camarena [email or web address] <ELECTRONICALLY SIGNED> By: Khanh Camarena MD, FACC 10/26/17 1446 0849 [id number] Khanh Camarena MD, [facility] /EPI
--- NOTE | 2017-10-26 19:35 | NUR ---
PT PARTIALLY PROGRESSING TOWARDS GOALS. TOLERATING HER DIET WELL WITHOUT NAUSEA OR VOMITING. PAIN BETTER CONTROLLED WITH PRN PAIN MEDICATIONS. CONTINUOUS PULSE OX READING 92-94% ON ROOM AIR. 1 UNIT RBC'S INFUSING. VSS. BLOOD PRESSURE SLIGHTLY HYPOTENSIVE. 80'S- LOW 100'S THIS AFTERNOON. PATIENT TRANSFERS WITH ASSIST X1 AND A WALKER. USING THE BEDSIDE COMMODE THIS EVENING WITH BP'S BEING SOFT, OTHERWISE PATIENT IS AMBULATORY FROM BED TO RESTROOM. REPOSITIONED FOR COMFORT. BED ALARM ON. HOURLY ROUNDING CHARTED. CALL LIGHT WITHIN REACH. WILL CONTINUE TO MONITOR.
[2017-10-27] VITALS: BP 116/66
[2017-10-27 04:00] VITALS: BP 104/59
[2017-10-27 05:23] LABS: HEMOGLOBIN 8.4 gm/dL (12.0-15.0)
[2017-10-27 05:25] LABS: ABSOLUTE BASOPHILS 0.1 thou/uL (0.0-0.2); ABSOLUTE EOSINOPHILS 0.2 thou/uL (0.0-0.7); ABSOLUTE LYMPHOCYTES 3.2 thou/uL (0.8-5.3); ABSOLUTE MONOCYTES 0.6 thou/uL (0.0-1.2); ABSOLUTE NEUTROPHILS 6.8 thou/uL (1.6-8.1); BASOPHILS 0.8 %; EOSINOPHILS 1.6 %; HEMATOCRIT 27.2 % (37.0-47.0); LYMPHOCYTES 29.3 %; MCH 19.2 pg (26.0-34.0); MONOCYTES 5.4 %; NUCLEATED RBCS 1 /100WBC; POLYS 62.9 %; RBC 4.39 mil/uL (4.20-5.00); RDW-CV 36.8 % (10.5-14.5); WBC 10.8 thou/uL (4.0-11.0)
[2017-10-27 05:48] LABS: ALBUMIN 2.7 g/dL (3.4-5.0); CALCIUM 9.1 mg/dL (8.5-10.1); CREATININE 1.6 mg/dL (0.6-1.3); POTASSIUM 4.8 mmol/L (3.5-5.1); TOTAL BILIRUBIN 1.2 mg/dL (<0.1-1.0); TOTAL PROTEIN 6.4 g/dL (6.4-8.2)
[2017-10-27 07:25] LABS: MPV 10.2 fl. (7.2-11.1); PLATELET COUNT* 97 thou/uL (150-400)
--- NOTE | 2017-10-27 07:40 | NUR ---
PATIENT RESTING IN BED. UP WITH ASSIST. DENIES NEEDS. REPORT GIVEN TO ONCOMING NURSE. WILL MONITOR.
[2017-10-27 08:00] VITALS: BP 102/61
[2017-10-27 12:22] VITALS: BP 88/49
[2017-10-27 16:37] VITALS: BP 98/52
--- NOTE | 2017-10-27 18:59 | NUR ---
ASSESSMENT COMPLETED REFER TO COMPUTER CHARTING. SCHOOL COOK TRACKING SR. RESTING IN BED AND RECLINER. PATIENT REPORTING NO PAIN OR INCREASED SHORTNESS OF BREATH. PATIENT REPORTING NAUSEA, ORAL NAUSEA GIVEN. PATIENT ON 2 LITERS VIA NASAL CANNULA. BED IN LOW AND LOCKED POSITION. CALL LIGHT WITHIN REACH. WILL CONTINUE TO MONITOR AT THIS TIME.
[2017-10-27 19:35] VITALS: BP 110/61
[2017-10-28] VITALS: BP 104/56
--- NOTE | 2017-10-28 02:45 | NUR ---
PT CALLED OUT STATING SHE DIDNT FEEL WELL. VITALS TAKEN. VSS. PT APPEARED TO BE GRAYISH AND PALE IN COLOR. LABORED BREATHING WAS NOTED. O2 TURNED UP TO 3L. O2 SAT 95%. PT WAS NAUSEOUS, ZOFRAN GIVEN WITH GOOD RESPONSE. DR BAH CONTACTED, ORDERS RECEIVED. SEE ORDERS/CHART. [facility]
[2017-10-28 04:00] VITALS: BP 97/55
[2017-10-28 05:15] LABS: HEMATOCRIT 28.1 % (37.0-47.0)
[2017-10-28 05:18] LABS: HEMOGLOBIN 8.7 gm/dL (12.0-15.0); MCH 19.1 pg (26.0-34.0); MCHC 30.8 g/dL (28.0-37.0); MCV 61.9 fL (80.0-100.0); MPV 9.9 fl. (7.2-11.1); NUCLEATED RBCS 1 /100WBC; PLATELET COUNT* 102 thou/uL (150-400); RBC 4.54 mil/uL (4.20-5.00); RDW-CV 36.8 % (10.5-14.5); WBC 11.2 thou/uL (4.0-11.0)
--- NOTE | 2017-10-28 05:32 | NUR ---
END SHIFT: PT REMAINS SR ON MONITOR. RATE 60'S. VSS. PT STATES BREATHING IS "BETTER" AFTER TREATMENTS. SAFETY PRECAUTIONS IN PLACE. PEFORMED HOURLY ROUNDING. WILL CONT TO MONITOR.
[2017-10-28 06:05] LABS: ALBUMIN 2.7 g/dL (3.4-5.0); CALCIUM 9.5 mg/dL (8.5-10.1); CREATININE 1.6 mg/dL (0.6-1.3); POTASSIUM 4.5 mmol/L (3.5-5.1); TOTAL BILIRUBIN 1.2 mg/dL (<0.1-1.0); TOTAL PROTEIN 6.4 g/dL (6.4-8.2)
[2017-10-28 07:30] VITALS: BP 97/44
[2017-10-28 07:41] LABS: ABSOLUTE BASOPHILS 0.1 thou/uL (0.0-0.2); ABSOLUTE EOSINOPHILS 0.3 thou/uL (0.0-0.7); ABSOLUTE LYMPHOCYTES 0.6 thou/uL (0.8-5.3); ABSOLUTE MONOCYTES 0.2 thou/uL (0.0-1.2); ANISOCYTOSIS 2+; HYPOCHROMASIA 3+; PLATELET ESTIMATE DECREASED; PROMYELOCYTES 2 %
[2017-10-28 07:42] LABS: MICROCYTES 2+; POLYCHROMASIA 2+
[2017-10-28 12:00] VITALS: BP 99/60
--- NOTE | 2017-10-28 15:41 | NUR ---
ASSESSMENT COMPLETED REFER TO COMPUTER CHARTING. FIRE ALARM OPERATOR TRACKING SR. PATIENT RESTING IN BED REPORTING NO PAIN OR NUASEA. PATIENT REPORTING SHORTNESS OF BREATH. PATIENT ON 3 LITERS VIA NASAL CANNULA. BIPAP ON STANDBY. IV SALINE LOCKED. PATIENT WORKING WITH THEARPY THIS AFTERNOON. WILL CONTINUE TO MONITOR.
[2017-10-28 16:11] VITALS: BP 120/64
[2017-10-28 23:39] VITALS: BP 101/49
[2017-10-29 03:43] VITALS: BP 118/63
[2017-10-29 05:10] LABS: HEMATOCRIT 26.4 % (37.0-47.0); MCH 17.8 pg (26.0-34.0); MCHC 30.3 g/dL (28.0-37.0); MCV 58.7 fL (80.0-100.0); MPV 8.6 fl. (7.2-11.1); NUCLEATED RBCS 0 /100WBC; PLATELET COUNT* 78 thou/uL (150-400); RBC 4.49 mil/uL (4.20-5.00); RDW-CV 37.5 % (10.5-14.5); WBC 9.1 thou/uL (4.0-11.0)
[2017-10-29 05:17] LABS: CALCIUM 8.9 mg/dL (8.5-10.1); CREATININE 1.4 mg/dL (0.6-1.3); POTASSIUM 3.4 mmol/L (3.5-5.1)
[2017-10-29 06:08] LABS: ABSOLUTE EOSINOPHILS 0.5 thou/uL (0.0-0.7); ABSOLUTE LYMPHOCYTES 1.4 thou/uL (0.8-5.3); ABSOLUTE MONOCYTES 0.5 thou/uL (0.0-1.2); ABSOLUTE NEUTROPHILS 6.6 thou/uL (1.6-8.1); HYPOCHROMASIA 2+; OVALOCYTES 1+; PLATELET ESTIMATE DECREASED; POLYCHROMASIA 1+
[2017-10-29 06:09] LABS: ANISOCYTOSIS 2+; LARGE PLATELETS OCCASIONAL; MICROCYTES 2+; POIKILOCYTOSIS 2+; SCHISTOCYTES Occasional; TARGET CELLS 1+
[2017-10-29 08:00] VITALS: BP 106/58
--- NOTE | 2017-10-29 11:47 | NUR ---
Following through dc. Spoke with Pt regarding disposition. Pt did much better with therapy today and plans to return home. Pt declines skilled, stating "I did it before after my stroke and I hated it." Pt wants to do outpt PT. CM to arrange at dc. Pt stated that she has lots of support at home, from her , children and friends. Pt's oldest son resides in the home with Pt and .
--- NOTE | 2017-10-29 12:04 | NUR ---
VSS, ASSUMED CARE IN THE AM, ASSESSMENT PERFORMED AND CHARTED, FALL PRECAUTIONS IN PLACE AND CALL LIGHT IN REACH. PT IS A&O4 ANS IS TRACING SR ON THE MONITOR AND ON 3L NC AND UP WITH ONE TO BSC. PT DENIES ANY PAIN AND HER GAOL IS TO WORK WITH PT/OT AND SIT UP IN CHAIR. ALSO IMPROVE BREATHING, WILL FOLLLOW WITH PLAN OR CARE.
--- NOTE | 2017-10-29 13:22 | NUR ---
I have reviewed the documentation by NENA DHILLON from 10/29/17 to 10/29/17 and I concur with it. NATALIE MCLAIN
[2017-10-29 13:31] VITALS: BP 122/66
[2017-10-29 16:27] VITALS: BP 121/66
--- NOTE | 2017-10-29 19:04 | NUR ---
VSS, PT IS PROGRESSING TOWARDS GOAL, PT IS TRACING SR ON THE MONITOR, HAS BEEN UP IN CHAIR FOR ALL MEALS, WORKED WITH OT AND GOAT CLEANED UP WITH SET UP HELP. PT IS ON 3L NC AND STATES SOME RECTAL PAIN, PT IS UP WITH, NO OTHER STATUS CHANGE AT THIS TIME.
[2017-10-29 20:00] VITALS: BP 125/64
[2017-10-30] VITALS: BP 95/54
[2017-10-30 04:00] VITALS: BP 109/59
--- NOTE | 2017-10-30 05:15 | NUR ---
PT ALERT ORIENTED. HYDROCODONE GIVEN TWICE FOR RECTAL PAIN. TELEMETRY SHOWS SR. UP TO BSC WITH ASSIST OF ONE. PT SITTING UP IN CHAIR SLEEPING FOR PART OF THE NIGHT. WILL CONTINUE TO MONITIOR.
[2017-10-30 07:20] LABS: ABSOLUTE NEUTROPHILS 6.1 thou/uL (1.6-8.1)
[2017-10-30 07:22] LABS: ABSOLUTE BASOPHILS 0.2 thou/uL (0.0-0.2); ABSOLUTE EOSINOPHILS 0.2 thou/uL (0.0-0.7); ABSOLUTE LYMPHOCYTES 1.8 thou/uL (0.8-5.3); ABSOLUTE MONOCYTES 0.8 thou/uL (0.0-1.2); BASOPHILS 2.4 %; EOSINOPHILS 2.3 %; HEMATOCRIT 27.1 % (37.0-47.0); HEMOGLOBIN 8.2 gm/dL (12.0-15.0); LYMPHOCYTES 19.8 %; MCH 17.7 pg (26.0-34.0); MCHC 30.4 g/dL (28.0-37.0); MCV 58.3 fL (80.0-100.0); MONOCYTES 8.3 %; MPV 9.3 fl. (7.2-11.1); NUCLEATED RBCS 0 /100WBC; PLATELET COUNT* 98 thou/uL (150-400); POLYS 67.2 %; RBC 4.65 mil/uL (4.20-5.00); RDW-CV 37.4 % (10.5-14.5); WBC 9.1 thou/uL (4.0-11.0)
[2017-10-30 07:30] VITALS: BP 121/60
--- NOTE | 2017-10-30 09:44 | NUR ---
CM discussed skilled with Pt again this morning, Pt continues to adamently decline going to skilled, stating "I will leave right now, I'm not going anywhere but home." CM updated nurse. Pt may need home o2 at dc, discussed with Pt, continues to plan to return home.
[2017-10-30 11:43] VITALS: BP 118/66
[2017-10-30 12:02] LABS: CALCIUM 8.9 mg/dL (8.5-10.1); CREATININE 1.2 mg/dL (0.6-1.3); POTASSIUM 3.4 mmol/L (3.5-5.1)
[2017-10-30 12:06] LABS: INR 1.2; PROTIME 11.7 Seconds (9.20-11.50)
--- NOTE | 2017-10-30 18:00 | NUR ---
VSS, ASSUMED CARE IN THE AM, ASSESSMENT PERFORMED AND CHARTED, FALL PRECAUTIONS IN PLACE AND CALL LIGHT IN REACH, PT IS UP WITH ONE AND WALKER AND O2. PT WEARS 2L NC AND IS TRAING SR ON THE MONITOR, DHE HAS PAIN IN RECTUM, HER GOAL IS TO WORK WITH OT/OT AND IMPROVE BREATHING, AT THIS TIME GOAL MEET, PT WORKED WITH PT/OT AND HAS IMPROVED BREATHING, PT HAS NO OTHER STATUS CHANGE AT THIS TIME, HOURLY ROUNDS COMPLETED,
[2017-10-30 20:00] VITALS: BP 100/56
[2017-10-31] VITALS: BP 107/58
--- NOTE | 2017-10-31 03:08 | NUR ---
PT ALERT ORIENTED. NPO AT MN WITH SIP FOR PAIN MED FOR CT OF ABD. TELEMETRY SHOWS SR. UP TO BSC WITH ASSIST OF ONE. WILL CONTINUE TO MONITOR.
[2017-10-31 04:00] VITALS: BP 101/68
[2017-10-31 05:08] LABS: HEMATOCRIT 27.3 % (37.0-47.0); HEMOGLOBIN 8.2 gm/dL (12.0-15.0); MCH 18.1 pg (26.0-34.0); MCHC 30.1 g/dL (28.0-37.0); MCV 60.2 fL (80.0-100.0); MPV 9.4 fl. (7.2-11.1); RBC 4.53 mil/uL (4.20-5.00); RDW-CV 36.8 % (10.5-14.5); WBC 9.5 thou/uL (4.0-11.0)
[2017-10-31 05:15] LABS: CALCIUM 8.7 mg/dL (8.5-10.1); CREATININE 1.3 mg/dL (0.6-1.3); POTASSIUM 4.3 mmol/L (3.5-5.1)
[2017-10-31 07:30] VITALS: BP 109/62
[2017-10-31 11:40] VITALS: BP 119/60
[2017-10-31] MEDS ORDERED: SORINE 80 MG TA80 MG PO (12:50)
[2017-10-31] MEDS ORDERED: XARELTO20 MG PO (12:51)
[2017-10-31] MEDS ORDERED: DUONEB 2.5-0.5 M3 ML INH (12:51)
[2017-10-31] MEDS ORDERED: ACETAMINOPHEN325 MG PO (12:52)
[2017-10-31] MEDS ORDERED: COLACE 100 MG100 MG PO (12:53)
[2017-10-31] MEDS ORDERED: MIRALAX17 GM PO (12:53)
[2017-10-31] MEDS ORDERED: NORCO 5-325 TA1 EACH PO (13:47)
--- NOTE | 2017-10-31 14:03 | NUR ---
Pt to dc to home today, Pt does require home o2, faxed referral to [facility] and asked that tank be delivered to Pt's room. Family to provide dc transportation home. CM to fax outpt PT orders to therapy place.
[2017-10-31] MEDS ORDERED: PROTONIX40 M1 PO (14:46)
--- NOTE | 2017-10-31 15:45 | NUR ---
RECEIVED PT CARE 0700. PT IS ALERT AND ORIENTED X4. VSS. PODIATRIC MEDICINE PROFESSOR TRACING SR. PATIENT IS WEARING O2 AT 2L PER NC. O2 SAT 96% ON 2L NC. AM ASSESSMENT CHARTED. MEDS PER DEC. AMBULATED WITH THERAPY THIS AFTERNOON TO QUALIFY FOR HOME OXYGEN. 2L NC AT REST AND 4L NC WITH ACTIVITY. SURGERY OK WITH DC TODAY AND REQUESTED PATIENT HOLD BLOOD THINNER ANOTHER DAY UNLESS BLEEDING NOTED FROM RECTUM. CARDIOLOGY OK WITH DC TODAY. NEW SCRIPTS WRITTEN FOR SOTALOL AND XARELTO PER CARDIOLOGY. CARDIOLOGY STOPPING NORVASC, TOPROLOL, AND COUMADIN. PLANNING FOR DC THIS AFTERNOON.
--- NOTE | 2017-10-31 16:54 | NUR ---
RECEIVED DISCHARGE ORDERS PER DR OWENS. IV DISCONTINUED. LAMINATING MACHINE OFFBEARER REMOVED AND RETURNED TO NURSE'S DESK. EDUCATED PT ON NEW MEDICATIONS AND MED INFORMATION SHEETS GIVEN. EDUCATED PT ON F/U APPOINTMENT WITH SURGERY, PRIMARY, GI, AND CARDIOLOGY. PATIENT STATED SHE WANTED TO SEE HER MEAL COOKER AND WAS INSTRUCTED TO F/U WITH 7 DAYS OF BEING DISCHARGED. PATIENT VERBALIZED UNDERSTANDING. SHE DENIES ANY QUESTIONS OR CONCNERNS AT DISCHARGE. [facility] DELIVERED OXYGEN TANK PRIOR TO DISCHARGING HOME. INSTRUCTED PATIENT TO WEAR O2 AT 2L AT REST AND 4L WITH ACTIVITY. PATIENT FREQUENTLY REMOVES HER OXYGEN AND DOES NOT PUT BACK ON. REINFORCED TO THE PATIENT THE IMPORTANCE OF OXYGEN AND THE SIDE EFFECTS OF NOT WEARING IT. PT VERBALIZED UNDERSTANDING. LEAVING VIA WHEELCHAIR ACCOMPANIED BY NURSING STAFF.
--- NOTE | 2017-11-05 19:26 | OP ---
[address] [address] OPERATIVE REPORT Name: VITO AYOUB Room: [address] IN M.R.#: [id number] Admission: 10/17/17 Attend Phys: Juan Daniel Casas MD Discharge: 10/31/17 Date of : 47 Report #: [id number] THIS REPORT FOR: //name// CC: Juan Daniel Redd MD DATE OF SERVICE: 10/25/2017 PREOPERATIVE DIAGNOSIS: Rectal bleeding. POSTOPERATIVE DIAGNOSES: 1. Rectal bleeding. 2. Third-degree combined external and internal hemorrhoids with bleeding. 3. Therapeutic anticoagulation. PROCEDURE: THD -- transanal hemorrhoidal dearterialization with Doppler guidance. SURGEON: Viviana Chavarria MD. [employer] SALES REPRESENTATIVE: Manohar Moss DO. ESTIMATED BLOOD LOSS: 50. COMPLICATIONS: None. ANESTHESIA: GET/local. FINDINGS: Very friable bleeding internal hemorrhoids and/or thongs. DESCRIPTION OF PROCEDURE: Fully informed consent was obtained preoperatively. Full discussion of all risks, benefits, alternatives and questions answered. The patient had understood risk of bleeding, severe infection, recurrence of disease, fecal incontinence or stricture, severe pain, urinary retention. She understood the options including painless options in the office as well as excisional hemorrhoidectomy for definitive treatment versus conservative management, catastrophic complications up to including severe perianal sepsis as well cardiopulmonary failure and . The patient understood and wished to proceed. She was taken to the operating room. We prepped and draped in standard sterile lithotomy fashion. Full exam under anesthesia was first performed and inspected externally for any evidence of infection. We performed digital rectal exam and looking carefully with anoscopy. I saw no evidence of any infection, but did notice easily worsening bleeding from gentle pressure. Next, I performed THD. THD device was set up. I used it to indentify the main hemorrhoidal branch to the left lateral ____. I used the THD needles, [place] [address] OPERATIVE REPORT Name: VITO AYOUB Room: [address] IN M.R.#: [id number] Admission: 10/17/17 Attend Phys: Juan Daniel Casas MD Discharge: 10/31/17 Date of : 47 Report #: [id number] in through the THD anoscopy at the point of maximum pulse. Just at the apex to the hemorrhoidal thong, figure-of-8 was performed. With these sutured, I then took multiple stitches down up to the dentate to perform hemorrhoidopexy. This appeared to be secured. I repeated this process at 5 additional locations for a total of 6 ligations. I did not hear any additional loud pulsation at these points through the hemorrhoidal plexus. I next used 3-0 Vicryl to ligate small areas of bleeding with good hemostasis. Inspected carefully and irrigated. I saw no evidence of any ongoing bleeding, 0.5% Marcaine was injected in pudendal nerve block fashion bilaterally through the scope. Sponge, needle, instrument counts were correct at the end of the case. The patient tolerated it well. <ELECTRONICALLY SIGNED> By: Viviana Chavarria MD 11/05/171925 [id number] Chavarria MD /nt
--- NOTE | 2017-11-09 19:58 | CON ---
[address] [address] CONSULTATION Name: VITO AYOUB Room: [address] IN M.R.#: [id number] Admission: 10/17/17 Attend Phys: Juan Daniel Casas MD Discharge: 10/31/17 Date of : 47 Report #: [id number] THIS REPORT FOR: //name// CC: Juan Daniel Redd MD DATE OF SERVICE: 10/17/2017 ADDENDUM REFERRING PHYSICIAN: Juan Daniel Casas MD. Addendum to job #[id number]. I was unable to see this patient tonight due to emergency at another facility. However, I discussed the patient's care with our nurse practitioner, Jennifer Smith, and agreed with plans of care. In reviewing her previous GI workup from August of last year, the patient was noted to have both large internal and external hemorrhoids, which are likely the source of her chronic anorectal bleeding. Unfortunately, she has to be on chronic anticoagulation due to her atrial fibrillation and having had a previous stroke. She does not want to stop them in the care home. For this reason, I will consult Dr. Viviana Chavarria to see what can be done regarding her hemorrhoidal disease. <ELECTRONICALLY SIGNED> By: Vicente Vázquez DO 11/09/171957 1712 [id number] Vázquez DO /joan
== END 2017-10-31 16:00 | disposition home or self-care (01) | DRG 347 ==
LOC: M.ERS 10:45 → M.2W 11:30 → M.TBA-ER 11:30 → M.2W 20:40
PROVIDERS: Family Medicine; Internal Medicine; Internal Medicine Cardiovascular Disease; Physician Assistant; Surgery; ADMIT Internal Medicine
PROC: 30233N1 Transfusion of Nonautologous Red Blood Cells into Peripheral Vein, Percutaneous Approach (ICD-10-PCS; 2017-10-17)
PROC: 06LY4ZC Occlusion of Hemorrhoidal Plexus, Percutaneous Endoscopic Approach (ICD-10-PCS; principal; 2017-10-26)
DX: K64.8 Other hemorrhoids (principal); K57.31 Diverticulosis of large intestine without perforation or abscess with bleeding; R57.1 Hypovolemic shock; I50.33 Acute on chronic diastolic (congestive) heart failure; D62 Acute posthemorrhagic anemia; N17.9 Acute kidney failure, unspecified; E44.1 Mild protein-calorie malnutrition; D68.9 Coagulation defect, unspecified; N39.0 Urinary tract infection, site not specified; E87.2 Acidosis; J98.11 Atelectasis; D68.59 Other primary thrombophilia; R65.10 Systemic inflammatory response syndrome (SIRS) of non-infectious origin without acute organ dysfunction; K64.9 Unspecified hemorrhoids; E11.9 Type 2 diabetes mellitus without complications; I11.0 Hypertensive heart disease with heart failure; I48.91 Unspecified atrial fibrillation; D69.6 Thrombocytopenia, unspecified; I25.10 Atherosclerotic heart disease of native coronary artery without angina pectoris; R06.00 Dyspnea, unspecified; D56.9 Thalassemia, unspecified; R55 Syncope and collapse; Z88.1 Allergy status to other antibiotic agents; Z88.8 Allergy status to other drugs, medicaments and biological substances; Z86.73 Personal history of transient ischemic attack (TIA), and cerebral infarction without residual deficits; Z95.1 Presence of aortocoronary bypass graft; Z90.49 Acquired absence of other specified parts of digestive tract; Z79.01 Long term (current) use of anticoagulants; Z79.899 Other long term (current) drug therapy; Z68.36 Body mass index [BMI] 36.0-36.9, adult

== ENCOUNTER → 2017-12-12 | Outpatient (CLI) | payer MEDICARE, OTHER ==
[~2017-12-12] MED LIST changes: +ACETAMINOPHEN325 MG PO; +COLACE 100 MG100 MG PO; +DUONEB 2.5-0.5 M3 ML INH; +JANTOVEN2 MG PO; +MIRALAX17 GM PO; +NORCO 5-325 TA1 EACH PO; +PROTONIX40 M1 PO; +SORINE 80 MG TA80 MG PO; +XARELTO20 MG PO
[2017-12-12 14:57] LABS: CALCIUM 8.6 mg/dL (8.5-10.1); HEMATOCRIT 25.7 % (37.0-47.0); HEMOGLOBIN 8.2 gm/dL (12.0-15.0); MCH 21.9 pg (26.0-34.0); MCHC 31.8 g/dL (28.0-37.0); MCV 68.7 fL (80.0-100.0); MPV 8.9 fl. (7.2-11.1); POTASSIUM 4.8 mmol/L (3.5-5.1); RBC 3.75 mil/uL (4.20-5.00); RDW-CV 28.9 % (10.5-14.5); WBC 7.4 thou/uL (4.0-11.0)
[2017-12-12 15:02] LABS: ALBUMIN 2.9 g/dL (3.4-5.0); TOTAL BILIRUBIN 1.5 mg/dL (<0.1-1.0); TOTAL PROTEIN 6.5 g/dL (6.4-8.2)
== END ==
LOC: M.CT 14:30
PROVIDERS: Internal Medicine
DX: R58 Hemorrhage, not elsewhere classified (principal)

== ENCOUNTER → 2018-01-11 | Outpatient (CLI) | payer MEDICARE, OTHER | LOC: M.RAD 12:30 | DX: I10 Essential (primary) hypertension (principal); J90 Pleural effusion, not elsewhere classified; E11.9 Type 2 diabetes mellitus without complications; E78.5 Hyperlipidemia, unspecified; R60.9 Edema, unspecified; G89.29 Other chronic pain; Z79.01 Long term (current) use of anticoagulants ==